=== PATIENT | male | born 1995 | race Asian ===

== ENCOUNTER 2024-01-27 12:41 | Emergency (ER) | payer OTHER, SELFPAY ==
[2024-01-27 12:44] VITALS: BP 153/89
[2024-01-27 13:11] LABS: % Basophils 0.8 % (0-2); % Eosinophils 11.3 % (0-6); % Immature Granulocytes 0.2 % (0-0.5); % Lymphocytes 17.4 % (20.5-51.1); % Monocytes 6.6 % (1.7-9.3); % Neutrophils 63.7 % (42.2-75.2); Absolute Basophils 0.1 10^3/uL (0-0.2); Absolute Eosinophils 0.9 10^3/uL (0-0.7); Absolute Lymphocytes 1.4 10^3/uL (1.2-3.4); Absolute Monocytes 0.5 10^3/uL (0.1-0.6); Absolute Neutrophils 5.3 10^3/uL (1.4-6.5); Hematocrit 45.8 % (39.0-52.0); Hemoglobin 15.9 g/dL (13.0-18.0); Mean Corp Hgb Conc. 34.7 g/dL (33.0-37.0); Mean Corpuscular Hgb 28.9 pg (27.0-31.0); Mean Corpuscular Volume 83.1 fL (80.0-94.0); Mean Platelet Volume 10.5 fL (7.4-10.4); Nucleated Red Blood Cells % 0 % (-); Platelet Count 221 10^3/uL (130-400); Red Blood Cell Count 5.51 10^6/uL (4.70-6.10); Red Cell Dist. Width 11.8 % (11.5-14.5); White Blood Cell Count 8.2 10^3/uL (4.8-10.8)
[2024-01-27 13:22] LABS: ALT (SGPT) 75 U/L (0-50); AST (SGOT) 37 U/L (17-59); Albumin 4.9 g/dl (3.5-5.0); Alkaline Phosphatase 70 U/L (38-126); Blood Urea Nitrogen 6 mg/dl (9-20); Calcium 9.7 mg/dl (8.4-10.2); Carbon Dioxide 28 mmol/L (22-30); Chloride 104 mmol/L (98-107); Glucose 103 mg/dl (70-99); Potassium 4.6 mmol/L (3.5-5.1); Sodium 141 mmol/L (135-145); Total Protein 7.6 g/dl (6.3-8.2); eGFR > 60.00
[2024-01-27 13:34] LABS: Troponin I < 0.012 ng/ml
[2024-01-27 13:43] VITALS: BP 132/79
--- NOTE | 2024-01-27 13:57 | ED.GENMED ---
History of Present Illness
<Yuli Vides PA-C - Last Filed: 01/27/24 21:00>
General
Chief Complaint: Breathing Problem
Source: patient
Exam Limitations: none
Time Seen by Provider: 01/27/24 13:57
Nursing documentation reviewed up to this point in time: agreed with
History of Present Illness
History of Present Illness:
28-year-old male with a past medical history of asthma presents emergency department with concerns of chest tightness and shortness of breath for the past 2 days. Patient states this feels similar to when he has an asthma exacerbation. Patient
reports that the cold is what exacerbates his asthma. Patient states that 2 nights ago he went outside and sat in the cold at night to try to observe immediate or shower. Patient states that he is also been coughing up scant mucus as well.
Patient denies any hemoptysis. Patient denies any upper back pain. Patient denies any syncopal episodes. Patient denies any dizziness. Patient states that he has been using his albuterol inhaler at home as needed without relief. Patient states
that he is not have a nebulizer machine at home.
Review of Systems
<Yuli Vides PA-C - Last Filed: 01/27/24 21:00>
Review of Systems
All Other Systems: ROS reviewed and negative except as documented in HPI and ROS
Phy Exam
<Yuli Vides PA-C - Last Filed: 01/27/24 21:00>
Physical Exam
Physical Exam:
General: Patient is well appearing and in no acute distress; non-toxic
Skin: Warm and dry, no rashes or lesions
Head: Normocephalic, atraumatic
Eyes: Sclera non-icteric. EOMs intact. PERRLA.
Cardiac: Regular rate and rhythm, no murmurs
Peripheral Vascular: No lower extremity swelling or edema
Pulm: Increased respiratory rate, diffuse wheezing heard bilaterally
Neuro: CN II-XII intact, no focal neurologic deficits.
Psychiatric: Appropriate mood and affect.
Course
<Yuli Vides PA-C - Last Filed: 01/27/24 21:00>
Orders/Labs/Results
Orders:
Orders
01/27/24 12:46
Electrocardiogram (*1) Urgent
Reason for Study: Shortness of Breath
CR Chest - 2 Views Urgent
Comment:
Reason For Exam: SOB
01/27/24 12:47
EKG- Treatment ONCE
01/27/24 12:56
Complete Blood Count/With Diff Urgent
Comprehensive Metabolic Panel Urgent
Troponin I Urgent
01/27/24 14:03
COVID-19 Antigen Urgent
Source: Nasal Swab
Influenza A+B Rapid Molecular Urgent
YOANA Source: Nasal Swab
Specimen Description:
01/27/24 14:41
Dexamethasone Sod Phosphate [Decadron] 10 mg IV NOW STA
Ipratropium/Albuterol Sulfate [Duoneb] 3 ml INH R NOW ONE
Ipratropium/Albuterol Sulfate [Duoneb] 3 ml INH R NOW ONE
Ipratropium/Albuterol Sulfate [Duoneb] 3 ml INH R NOW ONE
01/27/24 15:59
Albuterol Nebs [Ventolin Nebules] 2.5 mg INH R NOW STA
Abnormal Lab Results
01/27/24
12:56
MPV 10.5 H fL
(7.4-10.4)
Absolute Eos (auto) 0.9 H 10^3/uL
(0-0.7)
Lymphocytes % 17.4 L %
(20.5-51.1)
Eosinophils % 11.3 H %
(0-6)
BUN 6 L mg/dl
(9-20)
Glucose 103 H mg/dl
(70-99)
ALT 75 H U/L
(0-50)
01/27/24 12:56
01/27/24 12:56
Vital Signs
Initial and Last Documented VS:
Initial Vital Signs
Temp Pulse Resp BP Pulse Ox
98.9 F 64 20 153/89 99
01/27/24 12:44 01/27/24 12:44 01/27/24 12:44 01/27/24 12:44 01/27/24 12:44
Last Documented Vital Signs
Temp Pulse Resp BP Pulse Ox
98.9 F 69 10 130/89 100
01/27/24 12:44 01/27/24 15:30 01/27/24 15:30 01/27/24 14:00 01/27/24 15:30
<Reji Castillo, DO - Last Filed: 01/27/24 17:03>
Orders/Labs/Results
Orders:
Orders
01/27/24 12:46
Electrocardiogram (*1) Urgent
Reason for Study: Shortness of Breath
CR Chest - 2 Views Urgent
Comment:
Reason For Exam: SOB
01/27/24 12:47
EKG- Treatment ONCE
01/27/24 12:56
Complete Blood Count/With Diff Urgent
Comprehensive Metabolic Panel Urgent
Troponin I Urgent
01/27/24 14:03
COVID-19 Antigen Urgent
Source: Nasal Swab
Influenza A+B Rapid Molecular Urgent
YOANA Source: Nasal Swab
Specimen Description:
01/27/24 14:41
Dexamethasone Sod Phosphate [Decadron] 10 mg IV NOW STA
Ipratropium/Albuterol Sulfate [Duoneb] 3 ml INH R NOW ONE
Ipratropium/Albuterol Sulfate [Duoneb] 3 ml INH R NOW ONE
Ipratropium/Albuterol Sulfate [Duoneb] 3 ml INH R NOW ONE
01/27/24 15:59
Albuterol Nebs [Ventolin Nebules] 2.5 mg INH R NOW STA
Abnormal Lab Results
01/27/24
12:56
MPV 10.5 H fL
(7.4-10.4)
Absolute Eos (auto) 0.9 H 10^3/uL
(0-0.7)
Lymphocytes % 17.4 L %
(20.5-51.1)
Eosinophils % 11.3 H %
(0-6)
BUN 6 L mg/dl
(9-20)
Glucose 103 H mg/dl
(70-99)
ALT 75 H U/L
(0-50)
01/27/24 12:56
01/27/24 12:56
Vital Signs
Initial and Last Documented VS:
Initial Vital Signs
Temp Pulse Resp BP Pulse Ox
98.9 F 64 20 153/89 99
01/27/24 12:44 01/27/24 12:44 01/27/24 12:44 01/27/24 12:44 01/27/24 12:44
Last Documented Vital Signs
Temp Pulse Resp BP Pulse Ox
98.9 F 69 10 130/89 100
01/27/24 12:44 01/27/24 15:30 01/27/24 15:30 01/27/24 14:00 01/27/24 15:30
<Yuli Vides PA-C - Last Filed: 01/27/24 21:00>
MDM/Problems Addressed
Differential Diagnosis Includes:
see below
MDM/Problems Addressed:
NUMBER AND COMPLEXITY OF PROBLEMS ADDRESSED AT THE ENCOUNTER
� Chronic conditions affecting care: asthma
� Acute Exacerbation and/or Progression of Chronic Illness: n/a
� Differential Diagnosis includes: Asthma exacerbation, pneumonia, COVID-19, influenza, PE, GERD
AMOUNT AND/OR COMPLEXITY OF DATA TO BE REVIEWED AND ANALYZED
� I performed an independent evaluation of and my interpretation is:
EKG: Indication for EKG at this time as this is characteristic of patient's asthma exacerbations doubt ACS or cardiac etiology
X-ray: X-ray reveals unremarkable exam no clear infiltrate
Laboratory Studies: cbc and cmp unremarkable
Other:
� Review of other/old records: no previous ER physician or discharge summaries in [facility] to review
� Clinical information was obtained by an independent historian: none
� Prescriptions/Medications Considered but not given: none
� Further testing considered but not performed: n/a
RISK OF COMPLICATIONS AND/OR MORBIDITY OR MORTALITY OF PATIENT MANAGEMENT
� Social determinants of health affecting care: none
� Discussion with other providers: ER attending
� Escalation of care including admission/observation vs risk of discharge considered:
28-year-old male with a past medical history of asthma presents emergency department with concerns of chest tightness and shortness of breath for the past 2 days. He states that this is characteristic of his asthma exacerbations. His trigger are
the cold. Patient was given multiple DuoNeb treatments and dose of Decadron here in emergency department. On reassessment, his wheezing has improved and he appears more comfortable. His chest x-ray does not show any evidence of infiltrate.
Patient's albuterol inhaler was refilled and patient was given a DuoNeb machine. She is also given a course of steroids sent to the pharmacy. Patient stable for discharge.
<Yuli Vides PA-C - Last Filed: 01/27/24 21:00>
*Critical Care Note
Total Time (30-74mins, 75-104mins- exclusive of procedures): Not Applicable
ED Attending Note
<Yuli Vides PA-C - Last Filed: 01/27/24 21:00>
-
Portions of this chart may have been created with voice recognition software.� Occasional wrong word or��sound alike� substitutions may have occurred due to the inherent limitations of voice recognition software.
<Reji Castillo DO - Last Filed: 01/27/24 17:03>
ED Attending Note
Patient seen and examined by attending physician: Yes
I performed the substantive portion of visit, reviewed & personally made and approve the management plan that is documented in note by myself or JOSE ALFREDO.: Yes
ED Attending Note:
Patient is a 28-year-old asthmatic who only requires a rescue inhaler from time to time but presents with increasing shortness of breath and nonproductive cough for the past 3 days. Patient denies fever or chills. Patient states that this occurs
when he goes outside in the cold air which she was 3 nights ago watching meteor shower. Patient denies fever or chills, chest pain, GI or symptoms. Patient denies any leg pain or swelling. On physical exam patient does not appear to be in
significant distress. Patient does have inspiratory and expiratory wheezing. Heart is regular without murmur. Neck is supple without adenopathy. Legs are nontender with no cyanosis or edema but good peripheral pulses. Abdomen is soft nontender.
Will refill the patient's inhaler and placed on steroids as well as a nebulizer.
Discharge Plan
Departure
Patient Disposition: Home (Routine Discharge)
Date of Disposition: 01/27/24
Time of Disposition: 16:04
Patient with high blood pressure during this ER visit?: Yes
Condition: Good
Discharge Problem:
Asthma exacerbation
Instructions: Asthma, Adult (DC), BLOOD PRESSURE
Prescriptions:
New
prednisone 20 mg tablet
40 mg PO DAILY 5 Days Qty: 10 0RF
albuterol sulfate 2.5 mg /3 mL (0.083 %) solution for nebulization
2.5 mg inhalation Q4H PRN (Reason: shortness of breath or wheezing) Qty: 75 0RF
Stand Alone Forms: Return to Work
Activity Restrictions/Additional Instructions:
Prednisone, albuterol inhaler, and albuterol nebulizer solution has been sent to your pharmacy at the [facility] in [place] at [place].
Please return emergency department should you experience chest pain, shortness of breath, acute worsening of your symptoms, fevers or chills, coughing up blood, fainting spells, dizziness, lightheadedness, or any other signs or symptoms concerning
to you.
Interventions
Interventions:
*Risk Screen - Suicide Last Done: 01/27/24 14:06
*General Assessment Last Done: 01/27/24 12:44
*Neglect/Abuse Screening Last Done: 01/27/24 14:06
ED- Fall Risk Assessment Last Done: 01/27/24 14:06
*ED COVID-19 Vaccine History Last Done: 01/27/24 14:06
*Nursing Disposition Last Done: 01/27/24 16:42
ED- Cardiac Assessment Last Done: 01/27/24 14:06
ED- Pulmonary Assessment Last Done: 01/27/24 14:06
Discharge Date and Time
Discharge Date/Time: 01/27/24 16:42
Print Language: [place] CITIZ[place]
[2024-01-27 14:00] VITALS: BP 130/89
[2024-01-27 14:32] LABS: COVID-19 Antigen Negative (Negative)
[2024-01-27] MEDS: DUONEB 3 ML INH ×3 (14:47)
[2024-01-27] MEDS: DECADRON 10 MG IV (14:52)
[2024-01-27] MEDS: VENTOLIN NEBULES 2.5 MG INH (16:02)
== END 2024-01-27 16:42 | disposition home or self-care (01) ==
LOC: EMR 12:41
PROVIDERS: Physician Assistant; Registered Nurse; EMERGENCY PHYSICIAN Emergency Medicine
DX: J45.901 Unspecified asthma with (acute) exacerbation (principal); R03.0 Elevated blood-pressure reading, without diagnosis of hypertension; Z11.52 Encounter for screening for COVID-19
CPT/HCPCS: 99285; 96374; 94640; 71046; 80053; 84484; 85025; 87502; 87811; 93005